=== PATIENT | female | born 1950 | race Caucasian/White ===

== ENCOUNTER 2017-09-12 13:17 | Day surgery (SDC) | payer OTHER ==
[~2017-09-12] VITALS: Ht 172.7 cm; Wt 108.9 kg
[~2017-09-12 13:17] MED LIST: ACTOS45 MG PO; AMARYL2 MG PO; ASPIR 8181 M1 PO; CALCIUM 500 MG1 EACH PO; CENTRUM SILVER1 EAC3 PO; FUROSEMIDE40 MG PO; GLUCOPHAGE1000 MG PO; KLOR-CON SPRIN10 MEQ PO; LISINOPRIL10 MG PO; MAGNESIUM OXID200 MG PO; METOPROLOL SUCC50 MG PO; SIMVASTATIN40 MG PO; VITAMIN D32000 UNI1 PO
[2017-09-12 14:16] LABS: HEMOGLOBIN 11.2 G/DL (11.9-15.5); MCH 30.3 PG (29.0-34.0); MCV 94.6 FL (83-99); PLATELET COUNT 187 K/uL (156-360); RBC DIS.WIDTH-SD 44.6 % (39-53); WHITE BLOOD COUNT 7.9 K/uL (4.1-10.2)
[2017-09-12 14:30] LABS: ALBUMIN 3.9 G/DL (3.2-4.8); ALKALINE PHOSPHATASE 55 IU/L (3-129); ALT (GPT) 14 IU/L (3-49); AST (GOT) 14 IU/L (2-34); CHLORIDE 102 MEQ/L (99-109); CREATININE 1.4 MG/DL (0.6-1.3); GFR ESTIMATE (CALCULATED) 40 mL/min/; GLUCOSE 272 mg/dL (70-99); POTASSIUM 4.7 MEQ/L (3.7-5.4); SODIUM 139 MEQ/L (136-147); TOTAL BILIRUBIN 1.3 MG/DL (0.0-1.0); TOTAL PROTEIN 6.2 G/DL (6.4-8.3); UREA NITROGEN (BUN) 28 mg/dL (9-23)
[2017-09-12 14:36] VITALS: BP 193/84
[2017-09-12 20:00] VITALS: BP 180/80
[2017-09-12 23:17] VITALS: BP 133/63
[2017-09-13 00:30] VITALS: BP 125/75
== END 2017-09-13 01:55 | disposition home or self-care (01) ==
LOC: SDC 13:17 → ENRESERV 22:08 → 2EASTP 22:23
PROVIDERS: Ophthalmology
DX: H44.001 Unspecified purulent endophthalmitis, right eye (principal); H21.541 Posterior synechiae (iris), right eye; H35.371 Puckering of macula, right eye; B95.4 Other streptococcus as the cause of diseases classified elsewhere; E11.9 Type 2 diabetes mellitus without complications; Z79.84 Long term (current) use of oral hypoglycemic drugs; I10 Essential (primary) hypertension; Z79.82 Long term (current) use of aspirin; Z87.891 Personal history of nicotine dependence
CPT/HCPCS: 80053; 82948; 85027; 87070; 87077; 87102; 87186; 87205; 93005; G0378; J0690; J0713; J1100; J1120; J1885; J2250; J2795; J3010; J3300; J3370

== ENCOUNTER → 2017-09-23 | Day surgery (SDC) | payer OTHER ==
[2017-09-23 18:51] VITALS: BP 127/60
== END | disposition home or self-care (01) ==
LOC: SDC 18:20
PROVIDERS: Ophthalmology
DX: H44.111 Panuveitis, right eye (principal); H33.41 Traction detachment of retina, right eye
CPT/HCPCS: 82948; 87102; 87205; J0690; J1100; J1885; J2250; J2795; J3300

== ENCOUNTER → 2017-10-31 | Outpatient (CLI) | payer OTHER | END | disposition home or self-care (01) | LOC: AMB 12:03 | DX: H44.111 Panuveitis, right eye (principal) | CPT/HCPCS: 87102; 87205 ==